=== PATIENT | male | born 1955 | race Caucasian/White ===

== ENCOUNTER 2017-07-05 21:11 | Inpatient (IN) | payer BC ==
[~2017-07-05] VITALS: Ht 203.2 cm; Wt 149.1 kg
[~2017-07-05 21:11] MED LIST: ALDACTAZIDE 251 EACH PO; AMLODIPINE-BEN1 EACH; AMOXICILLIN500 MG; APRESOLINE25 MG PO; ASCORBIC ACID500 M3 PO; ASPIRIN EC325 MG PO; BACITRACIN28.4 GM TP; COZAAR100 MG PO; CYCLOBENZAPRINE 10 M; CYCLOBENZAPRINE10 MG PO; DESYREL100 MG PO; DICLOFENAC-MIS1 EAC3; DOCUSATE SODIU100 MG PO; DUCODYL5 MG PO; DULCOLAX10 MG PR; ERGOCALCIF50000 UNIT PO; FENTANYL1 EAC4 TD; FOLIC ACID1 MG PO; FUROSEMIDE20 MG; HYDROCHLOROTHIA25 MG PO; K-DUR20 MEQ PO; KEFLEX500 MG PO; LIDOCAINE700 MG TD; LOPRESSOR100 M1 PO; LOPRESSOR25 MG PO; LOSARTAN-HCTZ1 EAC1; MAGNESIUM400 M1 PO; METFORMIN HCL500 MG; METOPROLOL SUC100 MG PO; METOPROLOL TART50 MG PO; MIRALAX17 GM PO; MULTI VITAMIN1 EACH PO; NIACIN1000 MG PO; NIACIN500 M1 PO; NIACIN500 M4 PO; NORVASC5 MG PO; NOVOLOG PE100 UNITS/ SC; ONDANSETRON ODT4 MG PO; OXYCODONE HCL10 MG PO; OXYCODONE HCL5 MG PO; PANTOPRAZOLE SO40 MG PO; PERCOCET 10/1 TABLET PO; POTASSIUM20 MEQ/11 PO; PRAVASTATIN SOD80 MG PO; PROMETHAZINE12.5 M1 PO; REGLAN5 MG PO; ROBITUSSIN DM118 ML PO; ROCEPHIN1000 MG IM; ROXICODONE5 MG PO; SENNA-DOCUSATE1 EAC1 PO; SENNA-TIME S T1 EACH PO; SENOKOT,SENN1 TABLET PO; SIMCOR 500-401 EACH; SIMCOR 500-401 EACH PO; SPIRONOLACTONE25 MG PO; THERAGRAN1 TABLET PO; TRAZODONE HCL50 MG PO; TYLENOL REGULA325 MG PO; XARELTO1 EACH PO; XARELTO20 MG PO; ZOLPIDEM TARTRAT5 MG PO
[2017-07-05 21:33] LABS: HEMATOCRIT 40.3 % (38.0-50.0); MCH 28.5 PG (29.0-34.0); MEAN PLAT.VOLUME 9.7 uM^3 (9.0-12.4); PLATELET COUNT 261 K/uL (156-360); RBC DIS.WIDTH-CV 13.6 % (11.8-14.6); RBC DIS.WIDTH-SD 42.1 % (39-53); WHITE BLOOD COUNT 9.7 K/uL (4.1-10.2)
[2017-07-05 21:40] LABS: CHLORIDE 101 mEq/L (99-109); POTASSIUM 3.4 mEq/L (3.7-5.4); SODIUM 138 mEq/L (136-147)
[2017-07-05 21:42] LABS: GLUCOSE 112 mg/dL (70-99)
[2017-07-05 21:43] LABS: ANION GAP 13 MEQ/L (2-14)
[2017-07-05 21:44] LABS: TOTAL BILIRUBIN 0.4 mg/dL (0.0-1.0)
[2017-07-05 21:46] LABS: ALKALINE PHOSPHATASE 75 IU/L (3-129); GFR ESTIMATE (CALCULATED) > 59 mL/min/ (58.99-99999)
[2017-07-05 21:47] LABS: UREA NITROGEN (BUN) 15 mg/dL (9-23)
[2017-07-06] MEDS ORDERED: ROSUVASTATIN CAL5 MG PO (01:24)
[2017-07-06] MEDS ORDERED: NIACIN ER1000 MG PO (01:24)
[2017-07-06] MEDS ORDERED: XARELTO15 MG PO (01:25)
[2017-07-06] MEDS ORDERED: AMLODIPINE BESYL5 MG PO (01:25)
[2017-07-06] MEDS ORDERED: LO-DOSE ASPIRIN81 M2 PO (01:28)
[2017-07-06 02:55] VITALS: BP 137/79
[2017-07-06 07:05] LABS: HEMATOCRIT 37.3 % (38.0-50.0); MCH 27.9 PG (29.0-34.0); MCHC 33.2 G/DL (30.0-36.0); MEAN PLAT.VOLUME 9.9 uM^3 (9.0-12.4); PLATELET COUNT 250 K/uL (156-360); RBC DIS.WIDTH-CV 13.6 % (11.8-14.6); RBC DIS.WIDTH-SD 42.3 % (39-53); RED BLOOD COUNT 4.44 M/uL (4.00-5.50); WHITE BLOOD COUNT 7.5 K/uL (4.1-10.2)
[2017-07-06 07:22] VITALS: BP 122/74
[2017-07-06 07:38] LABS: ANION GAP 11 MEQ/L (2-14); CHLORIDE 105 MEQ/L (99-109); GFR ESTIMATE (CALCULATED) > 59 mL/min/ (58.99-99999); GLUCOSE 112 mg/dL (70-99); POTASSIUM 3.5 MEQ/L (3.7-5.4); SAMPLE HEMOLYSIS CHECK 0; SAMPLE ICTERIC CHECK 0; SAMPLE LIPEMIA CHECK 0; SODIUM 141 MEQ/L (136-147); UREA NITROGEN (BUN) 11 mg/dL (9-23)
[2017-07-06 12:44] LABS: POINT-OF-CARE METER ID UU13113717
[2017-07-06 16:46] VITALS: BP 119/75
[2017-07-06 17:41] LABS: POINT-OF-CARE METER ID UU14174225
[2017-07-06 21:12] LABS: POINT-OF-CARE METER ID UU13113717
[2017-07-07 00:08] VITALS: BP 142/87
[2017-07-07 03:56] VITALS: BP 143/79
[2017-07-07 06:53] LABS: HEMATOCRIT 38.9 % (38.0-50.0); MCH 28.6 PG (29.0-34.0); MCHC 33.2 G/DL (30.0-36.0); MCV 86.3 FL (86-99); MEAN PLAT.VOLUME 9.8 uM^3 (9.0-12.4); PLATELET COUNT 263 K/uL (156-360); RBC DIS.WIDTH-SD 43.8 % (39-53); RED BLOOD COUNT 4.51 M/uL (4.00-5.50)
[2017-07-07 07:15] LABS: ANION GAP 7 MEQ/L (2-14); CHLORIDE 107 MEQ/L (99-109); GFR ESTIMATE (CALCULATED) > 59 mL/min/ (58.99-99999); GLUCOSE 108 mg/dL (70-99); MAGNESIUM 1.8 mg/dl (1.3-2.7); SAMPLE HEMOLYSIS CHECK 0; SAMPLE ICTERIC CHECK 0; SAMPLE LIPEMIA CHECK 0; SODIUM 143 MEQ/L (136-147); UREA NITROGEN (BUN) 8 mg/dL (9-23)
[2017-07-07 07:54] LABS: POINT-OF-CARE METER ID UU13113717
[2017-07-07 07:58] VITALS: BP 136/90
[2017-07-07 11:35] LABS: POINT-OF-CARE METER ID UU13113717
[2017-07-07 11:49] VITALS: BP 135/89
[2017-07-07 16:20] VITALS: BP 138/87
[2017-07-07 17:39] LABS: POINT-OF-CARE METER ID UU13113717
[2017-07-07 19:39] VITALS: BP 153/84
[2017-07-07 20:40] LABS: POINT-OF-CARE METER ID UU13113717
[2017-07-08 00:30] VITALS: BP 143/81
[2017-07-08 03:35] VITALS: BP 152/80
[2017-07-08 06:38] LABS: HEMATOCRIT 40.1 % (38.0-50.0); MCH 28.1 PG (29.0-34.0); MCHC 33.2 G/DL (30.0-36.0); MCV 84.6 FL (86-99); MEAN PLAT.VOLUME 9.4 uM^3 (9.0-12.4); PLATELET COUNT 293 K/uL (156-360); RBC DIS.WIDTH-CV 13.5 % (11.8-14.6); RBC DIS.WIDTH-SD 42.4 % (39-53); RED BLOOD COUNT 4.74 M/uL (4.00-5.50); WHITE BLOOD COUNT 7.7 K/uL (4.1-10.2)
[2017-07-08 06:57] LABS: ANION GAP 8 MEQ/L (2-14); CHLORIDE 105 MEQ/L (99-109); GFR ESTIMATE (CALCULATED) > 59 mL/min/ (58.99-99999); GLUCOSE 105 mg/dL (70-99); POTASSIUM 3.7 MEQ/L (3.7-5.4); SAMPLE HEMOLYSIS CHECK 0; SAMPLE ICTERIC CHECK 0; SAMPLE LIPEMIA CHECK 0; SODIUM 140 MEQ/L (136-147); UREA NITROGEN (BUN) 11 mg/dL (9-23)
[2017-07-08 07:48] VITALS: BP 126/79
[2017-07-08 09:28] LABS: POINT-OF-CARE METER ID UU13113717
[2017-07-08 11:48] VITALS: BP 130/76
[2017-07-08 12:14] LABS: POINT-OF-CARE METER ID UU13113717
[2017-07-08 16:02] VITALS: BP 138/85
[2017-07-08 17:17] LABS: POINT-OF-CARE METER ID UU13113717
[2017-07-08 20:25] VITALS: BP 140/84
[2017-07-08 21:31] LABS: POINT-OF-CARE METER ID UU14302473
[2017-07-09 00:08] VITALS: BP 132/82
[2017-07-09 07:49] VITALS: BP 128/75
[2017-07-09 08:41] LABS: POINT-OF-CARE METER ID UU14174225
[2017-07-09] MEDS ORDERED: DYNAPEN 250 MG250 MG PO (08:45)
[2017-07-09 12:20] LABS: POINT-OF-CARE METER ID UU14302514
== END 2017-07-09 12:18 | disposition home or self-care (01) | DRG 579 ==
LOC: EME 21:11 → ENRESERV 07-06 01:16 → EDOF 07-06 01:16 → 5SOUTH 07-06 01:16 → CANRESERV 07-06 01:16 → ENRESERV 07-06 01:32 → 5SOUTH 07-06 02:27
PROVIDERS: Hospitalist; Internal Medicine; Physician Assistant; Physician Assistant Medical
PROC: 0JDR0ZZ Extraction of Left Foot Subcutaneous Tissue and Fascia, Open Approach (ICD-10-PCS; principal; 2017-07-06)
DX: L03.116 Cellulitis of left lower limb (principal); L97.329 Non-pressure chronic ulcer of left ankle with unspecified severity; E11.622 Type 2 diabetes mellitus with other skin ulcer; E11.69 Type 2 diabetes mellitus with other specified complication; T81.89XA Other complications of procedures, not elsewhere classified, initial encounter; M72.6 Necrotizing fasciitis; E11.628 Type 2 diabetes mellitus with other skin complications; M86.9 Osteomyelitis, unspecified; Z68.36 Body mass index [BMI] 36.0-36.9, adult; E78.5 Hyperlipidemia, unspecified; I10 Essential (primary) hypertension; G47.33 Obstructive sleep apnea (adult) (pediatric); E87.6 Hypokalemia; G62.9 Polyneuropathy, unspecified; E66.9 Obesity, unspecified; I35.0 Nonrheumatic aortic (valve) stenosis; K59.09 Other constipation; Z79.01 Long term (current) use of anticoagulants; Z86.718 Personal history of other venous thrombosis and embolism; K21.9 Gastro-esophageal reflux disease without esophagitis; B95.61 Methicillin susceptible Staphylococcus aureus infection as the cause of diseases classified elsewhere; Z79.82 Long term (current) use of aspirin; Z79.899 Other long term (current) drug therapy; Z82.3 Family history of stroke; Z82.41 Family history of sudden cardiac death
CPT/HCPCS: 73610; 80048; 80053; 80202; 82948; 83735; 85027; 87040; 87070; 87075; 87077; 87147; 87186; 87205; 93971; 97530 GP; 99281; 99284; A6021; A6260; J1815; J2543; J3370; J7030; J7050; S0032